=== PATIENT | male | born 1995 | race Caucasian/White ===

== ENCOUNTER 2020-04-03 10:00 | Outpatient (CLI) | payer BC, SELFPAY ==
--- NOTE | ~2020-04-03 | US_ITS ---
US arterial ankle brachial ind INDICATION: Leg edema TECHNIQUE: Segmental pressures and plethysmographic and Doppler waveforms of the brachial and lower e xtremity arteries were obtained. COMPARISON: None. FINDINGS: Right and left brachial artery pressures of 122 mm Hg and 118 mm Hg, respectively, are concordant (no rmal difference <= 30 mmHg). The right ankle-brachial index (BE) is 1.13 (normal >= 0.9-1.0). The right great toe-brachial index (TBI) is 0.7 (normal >= 0.60). The left BE is 1.22. The left TBI is 0.75. IMPRESSION: 1. Normal ankle-brachial indices. Reviewed, dictated and finalized at location B. POINT PEN CARTRIDGE TESTER
== END 2020-04-03 10:01 | disposition home or self-care (01) ==
LOC: ANHIMG 10:01
PROVIDERS: PCP Internal Medicine; Visit Provider Nurse Practitioner
DX: R60.0 Localized edema (principal)
CPT/HCPCS: 93922

== ENCOUNTER 2024-06-08 06:59 | Emergency (ER) | payer OTHER, SELFPAY ==
--- NOTE | ~2024-06-08 | CT_ITS ---
CLINICAL INDICATION: Left upper quadrant pain with constipation COMPARISON: None. TECHNIQUE: Multiple contiguous axial images of the abdomen and pelvis were performed following the ad ministration of with 100 mL Omnipaque-350 intravenous contrast The dose-length product (DLP) was 205.13 mGy-cm. Automated exposure control and iterative reconstruction technique were employed. FINDINGS/OBSERVATIONS: Visualized lower thorax: The bilateral lung bases are clear. The heart is of normal size, without pericardial effusion. Small hiatal hernia is present. Liver: The liver demonstrates homogeneous enhancement and is not enlarged. Gallbladder and biliary system: The gallbladder is distended, and otherwise unremarkable. Pancreas: The pancreas enhances homogeneously without ductal dilatation. Spleen: The spleen enhances homogeneously and is not enlarged. Kidneys: Prominence of the right renal pelvis and ureter, extending into the markedly distended bladd er. The remainder of the bilateral kidneys otherwise enhance symmetrically without jase hydronephrosis o r renal calculi. Adrenal glands: Unremarkable. Gastrointestinal tract: Colonic diverticulosis without surrounding inflammatory change. Moderate fecal debris the stasis within the colon and distending the rectum. Appendix: The air-filled appendix is of normal caliber (axial series, images 95 through 106). Vasculature: Unremarkable. Lymph nodes: No pathologically enlarged or morphologically suspicious lymph nodes within the retroperitoneum or at the root of the mesentery. Pelvic structures: The bladder is markedly distended, and otherwise unremarkable. The prostate gland is not enlarged. Body wall and musculoskeletal: No umbilical hernia. No significant degenerative disease within the lower thoracic or lumbosacral spine. IMPRESSION: Fecal stasis within the colon and distending the rectum. Mild right-sided hydroureteronephrosis, likely secondary to significant bladder distention, as detail ed above. Reviewed, dictated and finalized at location A. IMPRESSION: Fecal stasis within the colon and distending the rectum. Mild right-sided hydroureteronephrosis, likely secondary to significant bladder distention, as detailed above.
--- OUTSIDE RECORDS SUMMARY | 2024-06-08 07:01 | XMS_ITS | Clinical Summary ---
Author Organization [facility] Address [address] [place] [address] Care Team Providers Care Technical Operations Manager Name Role Phone Allen Cornelius DO Primary Care Provider [phone] Allergies Active Allergy Reactions Criticality Noted Date Comments Atropine Fever Medium 07/23/2020 Blood pressure issues and fever as an infant when atropine was given. As reported by the patient Medications erythromycin (ILOTYCIN) ophthalmic ointmentIndicati ons:Keratitis, superficial, punctate, right Apply a 1-2mm strip along the right lid before bed for 7-10 days 3.5 g 11 02/17/2021 Active Active Problems Problem Noted Date Diagnosed Date Blepharoconjunctivitis of right eye 02/17/2021 Assessment & Plan (02/26/2021 1:49 PM DIGITAL CIRCUIT DESIGNER): Significant improvement. Complete 3 week course of azythromycin. Stop Polytrim drops. Cont emycin BID right eye (OD) x 2 wk then drops. RTC if sx recur. Sees Derm for eczema. Keratitis, superficial, punctate, right 02/18/20 Psychophysical visual disturbances 09/08/2020 Aphakia, right eye 08/11/2020 Assessment & Plan (09/08/2020 9:07 AM CDT): Explantation of IOL right eye 07/29/2020 secondary spontaneous capsular dehisence. Right eye healing well. Flat retina OU chorioretinal scars of ROP laser therapy. 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 Patient desires to pursue soft contact lens fitting right eye. That fails will ask for spectacle correction. Third option is implantation a trans scleral sutured IOL. 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 If aniseikonia is too great, then pt may benefit from scleral-fixated IOL. F/U 10 days for IOP and AC check Bilateral retinopathy of prematurity, stage 3 Mechanical complication of intraocular lens 04/22 Assessment & Plan (07/14/2020 12:20 PM CDT): Repeat dislocation of IOL right eye. Producing monocular diplopia. Discussed options which now include attempt at optic capture or sewing IOL haptics to iris. Plan B would be IOL explantation. Assessment & Plan (05/15/2020 12:03 PM CDT): Recently noted distorted vision right eye and detected to have dis located IOL right eye. Lensectomy vitrectomy and IOL implantation right eye performed 04/22/2009. Schedule IOL repositioning; explained to patient parents that zonules weak may need explantation and TSS IOL or Ophtech iris enclaved IOL. Pseudophakia 05/15/2020 Assessment & Plan (07/04/2020 2:50 PM CDT): Lens repositioning post op day 1. Doing well, patient comfortable, no double vision today. Can continue pain medication, trying tapering off after starting drops. Pred forte QID, cyclo BID x 6 weeks, maxitrol BID x 1 week. Drop schedule reviewed today. Goggles or shield at bedtime. Follow up 1 week. 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 It is likely that he needs to wear warmer socks and keep his feet warm while it is this cold outside. His blood flow is normal to his feet and is unlikely that he has emboli from another source. Plan will be to have him try to keep his feet as warm as possible in see if this helps and if not come back and see me and we will work him up for possible embolic source. However I also do not think it is embolic since he does not have any pain with the discoloration. Edema 04/11/2020 Spontaneous subluxation of lens of right eye Assessment & Plan (08/13/2020 3:58 PM CDT): The visual acuity is improving, the sutures are intact, there is no signs of wound leak, nor infection, the intra-ocular pressure is back to normal. The anterior chamber has some debris but far less than previous examinations. The retina appears to be flat and intact 360 of the right eye. Today is much clearer in more improved than his previous postop visits. It looks like he is doing much better and is okay to discontinue the intra-ocular pressure medication. It is okay to utilize steroid antibiotic ointment if the eye becomes to scratchy and irritated. We would like for him to continue his prednisolone acetate and cyclopentolate as previously directed. There is no longer any need to do 6 times a day before times a day should be quite adequate to come down this surface that is continuing improving. Will follow-up in a few weeks to re-evaluate cornea, anterior chamber, refraction, retina etcetera Assessment & Plan (03/17/2020 1:18 PM DIGITAL CIRCUIT DESIGNER): Today he comes in with some reduced acuity secondary to his intra-ocular lens subluxating inferonasally. It does not sound like there is any trauma associated so this possibly a been a spontaneous focal zonular dehiscence with the intra- ocular lens falling anterior to the capsular bag. Today we discussed possibly relocating the intra-ocular lens back into the bag or the sulcus if desired. The anterior chamber depth was measured and found to be 2.8 mm in the left eye but since the BIOMETER thought the right eye was aphakic I could not obtain an anterior chamber depth. The axial length of the right eye was 25.67 consistent with a history of known retinopathy of prematurity. I had our pediatric fellow who is a talented pediatric surgeon come in and provide some options to family as to how to remediate the intraocular lens (IOL) subluxation. Old partial retinal detachment 01/20/2015 Assessment & Plan (02/26/2019 4:00 PM DIGITAL CIRCUIT DESIGNER): Today am pleased to report that the child has a healthy stable visual system. His right fundus appears to be healthy and stable in similar to last visit. There is heavy retinopathy of prematurity treatment that appears to be well placed and stable not warranting further intervention. There is a mild amount of epiretinal changes of no significant difference from previous examination. His left eye is long and well treated without signs of retinal hole tear or detachment. His refractive error appears to be quite stable. His implant is fine as is his intra-ocular pressure. Unspecified inflammation of eyelid 01/17/2013 Deprivation amblyopia of both eyes 01/17/2013 Anisometropia 01/17/2013 Squint 01/17/2013 Immunizations Immunization Administration Dates Next Due H1N1 Inj 12/16/2008 Influenza, Quadrivalent, Spl it, Intramuscular 12/17/2018 Influenza, Quadrivalent, Spl it, Preservative Free, Intramuscular 12/17/2018,12/24/2017 Influenza, Trivalent, Preser vative Free, Intramuscular 12/23/2016,01/17/2016,02/23/2015 Surgical History Surgery Date Site/Laterality Comments RETINA SURGERY mulitple CATARACT EXTRACTION GLAUCOMA SURGERY INTRAOCULAR LENS EXCHANGE 07/29/2020 Right IOL explantation and capsulectomy, [place] Medical History Medical History Date Comments Cataract Bilateral eye symptoms PONV (postoperative nausea and vomiting) Subluxation of lens, right 05/14/2020 Raynaud's disease without gangrene 04/11/2020 Family History Medical History Relation Name Comments Hyperlipidemia Father Hypertension Father Hypertension Maternal Grandfather Diabetes Maternal Grandmother Hypertension Maternal Grandmother Hypertension Mother's Brother Relation Name Status Comments Father Alive Maternal Grandfather Maternal Grandmother Mother Alive Mother's Brother Social History Tobacco Use Types Packs/Day Years Used Date Smoking Tobacco: Never Smokeless Tobacco: Never Sex and Gender Information Value Date Recorded Sex Assigned at Not on file Legal Sex Male 9:52 PM DIGITAL CIRCUIT DESIGNER Gender Identity Not on file Sexual Orientation Not on file Obstetrics History Last Filed Vital Signs Vital Sign Reading Time Taken Comments Blood Pressure 119/75 07/29/2020 2:50 PM CDT Pulse 68 07/29/2020 3:50 PM CDT Temperature 36.6 C (97.9 F) 07/29/2020 3:50 PM CDT Respiratory Rate 18 07/29/2020 3:50 PM CDT Oxygen Saturation 98% 07/29/2020 3:50 PM CDT Inhaled Oxygen Concentration - - Weight 55.2 kg (121 lb 11.1 oz) 07/29/2020 6:20 AM CDT Height 175 cm (5' 8.9 ) 07/29/2020 6:20 AM CDT Body Mass Index 18.02 07/29/2020 6:20 AM CDT Plan of Treatment Not on file Insurance [employer] BLUE ACCESS OOS Advance Directives For more information, please contact: [phone] Documents on File Type Date Recorded Patient Electronics Scale Tester Expl anation ADVANCE DIRECTIVE 07/29/2020 6:15 AM Care Teams Technical Operations Manager Relationship Specialty Start Date End Date Allen Cornelius DO PCP - General Internal Medicine 02/26/19
--- OUTSIDE RECORDS SUMMARY | 2024-06-08 07:01 | XMS_ITS | Clinical Summary ---
Author Organization [facility] Address [address] [address] Care Team Providers Care Psychology Department Chair Name Role Phone Unavailable Primary Care Provider Unavailabl e Encounters Date Type Department Care Team Description 04/17/2024 External Device Data ST[facility] ABSTRACTION Provider, Abstract 03/21/2024 External Device Data [facility] ABSTRACTION Provider, Abstract 03/15/2024 External Device Data [facility] ABSTRACTION Provider, Abstract from Last 3 Months Immunizations Immunization Administration Dates Next Due INFLUENZA VACCINE TRIVALENT SPLIT VIRUS, (6 MOS UP), 0.5ML (PF), IM 11/23/2023 Social History Tobacco Use Types Packs/Day Years Used Date Smoking Tobacco: Never Assessed Sex and Gender Information Value Date Recorded Sex Assigned at Not on file Legal Sex Male 10:45 AM CDT Gender Identity Not on file Sexual Orientation Not on file Plan of Treatment Health Maintenance Due Date Last Done Comments DTAP/TDAP/TD VACCINES (1 - Tdap) 2015 HEPATITIS B VACCINES (1 of 3 - 19+ 3-dose series) 2015 INFLUENZA VACCINE Completed 11/23/2023, , 12/24/2017, Additional history exists HPV VACCINES Aged Out No longer eligi ble based on patient's age to complete this topic PNEUMOCOCCAL VACCINE 0-49 YEARS Aged Out No longer eligible based on patient's age to complete this topic
--- OUTSIDE RECORDS SUMMARY | 2024-06-08 07:01 | XMS_ITS | Referral Summary ---
Author Organization [facility] Address [address] [place] [address] Care Team Providers Care Production Posting Clerk Name Role Phone Allen Cornelius DO Primary Care Provider [phone] Allergies Active Allergy Reactions Criticality Noted Date [...] 02/17/2021 Assessment & Plan (02/26/2021 1:49 PM PICKERS MATERIAL HANDLERS): Significant improvement. Complete 3 week course of [...] (05/14/2020): Added automatically from request for surgery [id number] Subluxation of lens, right 05/14/2020 Overview (05/14/2020): Added automatically from request for surgery [id number] Raynaud's disease without gangrene 04/11/2020 Assessment & Plan (04/11/2020 8:10 AM PICKERS MATERIAL HANDLERS): Patient likely has Raynaud's disease as he [...] etcetera Assessment & Plan (03/17/2020 1:18 PM PICKERS MATERIAL HANDLERS): Today he comes in with some reduced [...] 01/20/2015 Assessment & Plan (02/26/2019 4:00 PM PICKERS MATERIAL HANDLERS): Today am pleased to report that the [...] Influenza, Trivalent, Preser vative Free, Intramuscular 12/23/2016,01/17/2016,02/23/2015 Social History Tobacco Use Types Packs/Day Years Used Date Smoking Tobacco: Never Smokeless Tobacco: Never Sex and Gender Information Value Date Recorded Sex Assigned at Not on file Legal Sex Male 9:52 PM PICKERS MATERIAL HANDLERS Gender Identity Not on file Sexual Orientation Not on file Last Filed Vital Signs Vital Sign Reading [...] Plan of Treatment Not on file Insurance [employer] OOS Advance Directives For more information, please contact: [phone] Documents on File Type Date Recorded Patient Mixer Whipped Topping Expl anation ADVANCE DIRECTIVE 07/29/2020 6:15 AM Care Teams Production Posting Clerk Relationship Specialty Start Date End Date Allen Cornelius DO PCP - General Internal Medicine 02/26/19
--- OUTSIDE RECORDS SUMMARY | 2024-06-08 07:01 | XMS_ITS | Continuity of Care Document ---
Author Organization [facility] Address [address] [place] [address] Phone Care Team Providers Care Bulldogger Name Role Phone Samir Lambert MD Unavailable Unavailable Medications Medication Instructions Dosage Effective Dates (start - stop) Status Comments PROAIR HFA 90MCG PUFFS inhale 2 puff by inhalation route 4 - 6 hours as needed - Active FLOVENT 100 MCG DISKUS 1 BID - Active Concerta 27 mg 24 hr Tab take 1 tablet (27MG) by oral route every day in the morning 27 MG - Active PROAIR HFA 90MCG PUFFS 2 Q 4-6HR - No Longer Active Advance Directives Directive Yes / No Effective Date File Name No Information Encounters Encounter Description Practice Location Reason(s) For Visit Diagnoses Date Provider Providers Copied on Encounter [facility], [address], [place], [place], [address], tel:[phone] [facility] INTRINSIC ASTHMA, UNSPECIFIED [address] [place] [address], [id number], [place]. tel:[phone] Referring Provider: Treasure Chowdary, [facility] [address], [place], [address]. tel:[phone] [facility], [address], [place], [place], [address], tel:[phone] [facility] No Information 1 Fausto Dawson. [address], [id number], . tel:[phone] [facility], [address], [place], [place], [address], [place] tel:[phone] Conversion Department No Information 1 [facility]. [address] [place], [address], [place]. [facility], [address], [place], [place], [address], tel:[phone] [facility] INTRINSIC ASTHMA NOS 9 Fausto Dawson. [address] [facility], [address] [place] [address], [place], [place], [id number], . tel:[phone] Family History Family Member Type Diagnosis Age At Onset No Information Payers Payer name Insurance type Covered constitution party ID Authorjeremy cabrera(s) [facility] [id number] Social History Type Description Quantity Date Captured Comments Sex Male Smoking Status No Information Vital Signs Date / Time: Height Weight BMI Pulse Rate Blood Pressure Temperature Respiratory Rate Body Surface Area Head Circumference Head Circ. Percentile Wt./Johnny. Percentile BMI percentile Pulse Ox Inhaled Ox 5:04 PM 62.00 in 80.00 lbs Chief Complaint And Reason For Visit No Information Reason For Referral Reason For Referral No Information History Of Present Illness Encounter Date Complaint History Of Prese nt Illness No Information Functional Status Date Functional Assessmen t No Information Instructions Date Instruction Additional Infor mation No Information Assessments Type Assessment Date No Information Patient Care Teams Name Effective Dates (start - stop) Status Members No Information
[2024-06-08 07:02] VITALS: BP 138/80; PULSE 89; RESP 17; TEMP 36.8; O2SAT 100
--- NOTE | 2024-06-08 07:48 | PC.NURSE ---
Attempted SL x2 no success. RN requested another RN to attempt
--- OUTSIDE RECORDS SUMMARY | 2024-06-08 07:56 | XMS_ITS | Referral Summary ---
Author Organization [facility] Address [address] [place] [address] Care Team Providers Care Printing Sign Machine Operator Name Role Phone Allen Cornelius DO Primary Care Provider [phone] Allergies Active Allergy Reactions Criticality Noted Date [...] 02/17/2021 Assessment & Plan (02/26/2021 1:49 PM CUSTOMER SERVICE OFFICER): Significant improvement. Complete 3 week course of [...] (05/14/2020): Added automatically from request for surgery [id number] Subluxation of lens, right 05/14/2020 Overview (05/14/2020): Added automatically from request for surgery [id number] Raynaud's disease without gangrene 04/11/2020 Assessment & Plan (04/11/2020 8:10 AM CUSTOMER SERVICE OFFICER): Patient likely has Raynaud's disease as he [...] etcetera Assessment & Plan (03/17/2020 1:18 PM CUSTOMER SERVICE OFFICER): Today he comes in with some reduced [...] 01/20/2015 Assessment & Plan (02/26/2019 4:00 PM CUSTOMER SERVICE OFFICER): Today am pleased to report that the [...] on file Legal Sex Male 9:52 PM CUSTOMER SERVICE OFFICER Gender Identity Not on file Sexual Orientation [...] Plan of Treatment Not on file Insurance [employer] OOS Advance Directives For more information, please contact: [phone] Documents on File Type Date Recorded Patient Shell Mold Bonding Machine Operator Expl anation ADVANCE DIRECTIVE 07/29/2020 6:15 AM Care Teams Printing Sign Machine Operator Relationship Specialty Start Date End Date Allen Cornelius DO PCP - General Internal Medicine 02/26/19
--- OUTSIDE RECORDS SUMMARY | 2024-06-08 07:56 | XMS_ITS | Continuity of Care Document ---
Author Organization [facility] Address [address] [place] [address] Phone Care Team Providers Care Home Theatre Technician Name Role Phone Samir Lambert MD Unavailable [...] Diagnoses Date Provider Providers Copied on Encounter [facility], [address], [place], [place], [address], tel:[phone] [facility] INTRINSIC ASTHMA, UNSPECIFIED [address] [place] [address], [id number], [place]. tel:[phone] Referring Provider: Treasure Chowdary, [facility] [address], [place], [address]. tel:[phone] [facility], [address], [place], [place], [address], tel:[phone] [facility] No Information 1 Fausto Dawson. [address], [id number], . tel:[phone] [facility], [address], [place], [place], [address], [place] tel:[phone] Conversion Department No Information 1 [facility]. [address] [place], [address], [place]. [facility], [address], [place], [place], [address], tel:[phone] [facility] INTRINSIC ASTHMA NOS 9 Fausto Dawson. [address] [facility], [place] [address] [address], [place], [place], [id number], . tel:[phone] Family History Family Member Type Diagnosis Age At Onset No Information Payers Payer name Insurance type Covered democrat ID Authorjeremy cabrera(s) [facility] [id number] Social History Type Description Quantity Date Captured [...]
--- OUTSIDE RECORDS SUMMARY | 2024-06-08 07:56 | XMS_ITS | Clinical Summary ---
Author Organization [facility] Address [address] [place] [address] Care Team Providers Care Tank Builder Name Role Phone Allen Cornelius DO Primary Care Provider [phone] Allergies Active Allergy Reactions Criticality Noted Date [...] 02/17/2021 Assessment & Plan (02/26/2021 1:49 PM HEAD OF TALENT MANAGEMENT): Significant improvement. Complete 3 week course of [...] (05/14/2020): Added automatically from request for surgery [id number] Subluxation of lens, right 05/14/2020 Overview (05/14/2020): Added automatically from request for surgery [id number] Raynaud's disease without gangrene 04/11/2020 Assessment & Plan (04/11/2020 8:10 AM HEAD OF TALENT MANAGEMENT): Patient likely has Raynaud's disease as he [...] etcetera Assessment & Plan (03/17/2020 1:18 PM HEAD OF TALENT MANAGEMENT): Today he comes in with some reduced [...] 01/20/2015 Assessment & Plan (02/26/2019 4:00 PM HEAD OF TALENT MANAGEMENT): Today am pleased to report that the [...] on file Legal Sex Male 9:52 PM HEAD OF TALENT MANAGEMENT Gender Identity Not on file Sexual Orientation [...] Plan of Treatment Not on file Insurance [employer] BLUE ACCESS OOS Advance Directives For more information, please contact: [phone] Documents on File Type Date Recorded Patient Private Sector Executive Expl anation ADVANCE DIRECTIVE 07/29/2020 6:15 AM Care Teams Tank Builder Relationship Specialty Start Date End Date Allen Cornelius DO PCP - General Internal Medicine 02/26/19
--- OUTSIDE RECORDS SUMMARY | 2024-06-08 07:56 | XMS_ITS | Clinical Summary ---
Author Organization [facility] [employer] [place] Address [address] [address] Care Team Providers Care Rn Enterostomal Name Role Phone Unavailable Primary Care Provider [...]
[2024-06-08 07:57] LABS: Add Urine Microscopic? NO; Appearance Urine Clear (Clear); Bilirubin Urine Negative (Negative); Blood Urine Negative (Negative); Color Urine Yellow (Yellow); Glucose Urine UA Negative (Negative); Ketones Urine 1+ mg/dL (Negative); Leukocyte Esterase Ur Negative LEU/UL (Negative); Nitrate Urine Negative (Negative); Protein Urine Negative (Negative); Specific Grav Ur 1.009 (1.001-1.035); pH Urine 5.5 (5.0-9.0)
[2024-06-08 08:01] LABS: Lipase 79 U/L (23-300)
[2024-06-08 08:04] LABS: Basophils Percent Auto 0.6 % (0.2-1.2); Eosinophils Percent Auto 1.2 % (0-4.4); Immature Granulocyte Absolute 0.03 K/mm3 (0.00-0.031); Immature Granulocyte Percent A 0.9 % (0-0.5); Lymphocytes Absolute Auto 1.11 K/mm3 (0.9-3.2); Lymphocytes Percent Auto 33.6 % (18.3-44.2); Mean Corpuscular Hemoglobin 28.4 pg (26-34); Mean Corpuscular Volume 83.3 fl (80-100); Mean Platelet Volume 11.8 fl (7.4-10.4); Monocytes Absolute Auto 0.3 K/mm3 (0.1-0.6); Monocytes Percent Auto 8.8 % (2.6-8.5); Neutrophils Absolute Auto 1.8 K/mm3 (1.3-6.7); Neutrophils Percent Auto 54.9 % (45.5-73.1); Platelet Count Result 187 k/mm3 (150-375); Red Blood Count 5.64 M/mm3 (4.6-6.20); Red Cell Distribution Width 12.3 % (11.5-14.5); White Blood Count 3.3 K/mm3 (4.5-10.0)
--- NOTE | 2024-06-08 08:47 | PC.NURSE ---
CAT scan notified RN for need for CMP prior to CT. Dr. Nix informed and order received for CMP. Chemistry notified.
[2024-06-08 08:56] LABS: Alanine Aminotransferase 35 U/L (6-50); Albumin Level 5.1 g/dL (3.5-5.1); Alkaline Phosphatase 92 U/L (38-126); Anion Gap 15 mmol/L (4-12); Aspartate Amino Transferase 35 U/L (17-59); Bilirubin,Total 3.1 mg/dL (0.2-1.3); Blood Urea Nitrogen 15 mg/dL (9-20); Calcium 9.7 mg/dL (8.4-10.2); Carbon Dioxide 24 mmol/L (22-30); Chloride 102 mmol/L (98-107); Estimated CRCL calculation 91 ml/min; Estimated Glomerular Filt Rate > 60; Glucose 100 mg/dL (65-110); Potassium 3.9 mmol/L (3.4-5.0); Sodium 141 mmol/L (137-145)
[2024-06-08 08:57] VITALS: BP 128/73; PULSE 84; RESP 16; TEMP 36.7; O2SAT 98
--- NOTE | 2024-06-08 10:16 | ED_ITS ---
HPI - Abdominal Pain General Chief Complaint: Abdominal Pain Stated Complaint: abd pain Time Seen by Provider: 06/08/24 07:34 Source: patient and family Mode of arrival: ambulatory Limitations: no limitations History of Present Illness HPI narrative: 29-year-old otherwise healthy here with a complains of upper abdominal pain with started few days ago. Patient states that it initially was on the right side of the upper abdomen and since this morning he has been having left upper abdomen. Patient states he saw his primary doctor yesterday and was advised to go to the emergency room if there is any change in pain. He denies any nausea or vomiting. No history of fever or chills. Related Data Allergies Allergy/AdvReac Type Severity Reaction Status Date / Time atropine Allergy Mild Rash Verified 06/08/24 06:59 Review of Systems 2 Review of Systems: All systems reviewed & are unremarkable except as noted in HPI and below Constitutional: Constitutional: Reports no additional constitutional complaints Eyes: Eyes: Reports no additional eye complaints ENT: Reports system reviewed and no additional complaints, except as documented Cardiovascular: Cardiovascular: Reports no additional cardiovascular complaints Respiratory: Respiratory: Reports no additional respiratory complaints Gastrointestinal: Gastrointestinal: Reports as per HPI Musculoskeletal: Musculoskeletal: Reports no additional musculoskeletal complaints Integumentary/Breasts: Skin/Breast: Reports system reviewed and no additional complaints, except as docu [facility] Surgical History Surgical History Hx of eye surgery 07/29/20 - lens in right eye replaced Family History Family History Mother Patient's mother is in good health Father Family history of gallbladder disease Other Family history of cardiovascular disease Social History Social History Smoking status: Never smoker Second hand tobacco smoke exposure: No Alcohol intake: current Substance use: never Substance use type: does not use Do You Feel Safe in your Home?: Yes Lack of Transportation: No Lack of Food: Never True Current Housing: I Have Housing Concerned About Future Housing: No Difficulty Paying Gas/Electric Bills: No Difficulty Paying for Meds: No Currently Unemployed: No Education: Bachelor's Degree Difficulty w/ Childcare or Family Care: No Living arrangements: with family Occupation/Education: occupation Gender identity (if verbalized by the patient): Male Sexual Orientation (if Verbalized by the Patient): Straight or Heterosexual Spiritual care concerns: No Agree to blood products: Yes Exam 2 Narrative: GENERAL: Well-appearing, well-nourished, and in no acute distress. HEAD: Normocephalic, atraumatic. EYES: PERRLA and EOMI. ENT: Nares clear, no rhinorrhea or epistaxis. Mucous membranes moist. NECK: Supple. CHEST: Clear to auscultation. No respiratory distress. HEART: Regular rate and rhythm. No murmur heard. Normal peripheral pulses. ABDOMEN: Soft, nontender, nondistended, normal active bowel sounds. EXTREMITIES: Normal range of motion. No edema. SKIN: Warm, dry, no rash. NEURO: No focal deficits. Alert and oriented x3. PSYCH: Normal mood and affect. Course Course Emergency Course: Patient comfortably resting on bed in no discomfort informed him and his parents about the lab work, CT findings. Patient had distended bladder the bladder scan showed about 612 mL the postvoid was 0. Do not suspect any outlet obstruction. Advised him to continue his home medications, watch her tonight, follow-up with his primary doctor. Vital Signs Vital signs: Vital Signs Temperature 36.8 C 06/08/24 07:02 Pulse Rate 89 06/08/24 07:02 Respiratory Rate 17 06/08/24 07:02 Blood Pressure 138/80 06/08/24 07:02 Pulse Oximetry 100 06/08/24 07:02 Oxygen Delivery Room Air 06/08/24 07:02 Temperature 36.7 C 06/08/24 08:57 Pulse Rate 84 06/08/24 08:57 Respiratory Rate 16 06/08/24 08:57 Blood Pressure 128/73 06/08/24 08:57 Pulse Oximetry 98 06/08/24 08:57 Oxygen Delivery Room Air 06/08/24 07:02 MDM - Abdominal Pain Medical Records Attestation: I reviewed the patient's medical records. Lab Data Attestation: I reviewed the patient's lab results. 06/08/24 07:43 06/08/24 07:43 Labs: Lab Results 06/08/24 Range/Units 07:43 WBC 3.3 L (4.5-10.0) K/mm3 RBC 5.64 (4.6-6.20) M/mm3 Hgb 16.0 (14.0-18.0) g/dL Hct 47.0 (42.0-52.0) % MCV 83.3 (80-100) fl MCH 28.4 (26-34) pg MCHC 34.0 (32-36) g/dl RDW 12.3 (11.5-14.5) % Plt Count 187 (150-375) k/mm3 MPV 11.8 H (7.4-10.4) fl Immature Gran % (Auto) 0.9 H (0-0.5) % Neut % (Auto) 54.9 (45.5-73.1) % Lymph % (Auto) 33.6 (18.3-44.2) % Tripp % (Auto) 8.8 H (2.6-8.5) % Eos % (Auto) 1.2 (0-4.4) % Baso % (Auto) 0.6 (0.2-1.2) % Lymph # (Auto) 1.11 (0.9-3.2) K/mm3 Tripp # (Auto) 0.3 (0.1-0.6) K/mm3 Eos # (Auto) 0.0 (0-0.3) K/mm3 Baso # (Auto) 0.0 (0.0-0.1) K/mm3 Abs Immat Gran (auto) 0.03 (0.00-0.031) K/mm3 Absolute Neuts (auto) 1.8 (1.3-6.7) K/mm3 Absolute Nucleated RBC 0.000 (0.0-0.012) K/mm3 Nucleated RBC % 0.0 (0.0-0.2) % Sodium 141 (137-145) mmol/L Potassium 3.9 (3.4-5.0) mmol/L Chloride 102 (98-107) mmol/L Carbon Dioxide 24 (22-30) mmol/L Anion Gap 15 H (4-12) mmol/L BUN 15 (9-20) mg/dL Creatinine 0.80 (0.7-1.3) mg/dL Estim Creat Clear Calc 91 ml/min Estimated GFR > 60 (59 - ) Glucose 100 (65-110) mg/dL Calcium 9.7 (8.4-10.2) mg/dL Total Bilirubin 3.1 H (0.2-1.3) mg/dL AST 35 (17-59) U/L ALT 35 (6-50) U/L Alkaline Phosphatase 92 (38-126) U/L Total Protein 8.0 (6.3-8.2) g/dL Albumin 5.1 (3.5-5.1) g/dL Lipase 79 (23-300) U/L Urine Color Yellow (Yellow) Urine Appearance Clear (Clear) Urine pH 5.5 (5.0-9.0) Ur Specific [place] 1.009 (1.001-1.035) Urine Protein Negative (Negative) mg/dL Urine Glucose (UA) Negative (Negative) mg/dL Urine Ketones 1+ H (Negative) mg/dL Ur Blood (Man) Negative (Negative) Urine Nitrate Negative (Negative) Urine Bilirubin Negative (Negative) Urine Urobilinogen 1.0 (<2.0) mg/dL Leukocyte Esterase Rfl Negative (Negative) BERT/UL Imaging Data Radiologist's impression: ITS Impressions Abdomen/Pelvis CT 06/08/24 09:20 IMPRESSION: Fecal stasis within the colon and distending the rectum. Mild right-sided hydroureteronephrosis, likely secondary to significant bladder distention, as detailed above. Discharge Plan Discharge Clinical Impression: Abdominal pain Qualifiers: Abdominal location: left upper quadrant Qualified Code(s): R10.12 - Left upper quadrant pain Constipation Qualifiers: Constipation type: slow transit constipation Qualified Code(s): K59.01 - Slow transit constipation Patient Disposition: Home Condition: Stable Instructions: Acute Abdominal Pain (ED) Additional Instructions: continue home medications, high fiber diet , follow with your doctor. Patient Language: Icelandic Prescriptions: No Action triamcinolone acetonide 0.025 % cream 1 applic topical BID PRN (Reason: eczema) Qty: 80 0RF Follow-up/Referrals: Dorie Moraes APRN [Primary Care Provider] - Time of Disposition: 10:22
[2024-06-08 10:50] VITALS: BP 124/90; PULSE 78; RESP 16; TEMP 36.8; O2SAT 97
== END 2024-06-08 10:50 | disposition home or self-care (01) ==
PROVIDERS: Emergency Provider Family Medicine; PCP Nurse Practitioner Family
DX: R10.12 Left upper quadrant pain (principal); K59.01 Slow transit constipation; N13.30 Unspecified hydronephrosis
CPT/HCPCS: 36415; 74177; 80053; 81003; 83690; 85025; 99284; Q9967